=== PATIENT | male | born 1955 | race Caucasian/White ===

== ENCOUNTER 2021-07-28 08:53 | Outpatient (CLI) | payer BC ==
[2021-07-28 09:20] LABS: Estimated GFR-MDRD - POC Greater than 90
[2021-07-28] MEDS ORDERED: Iopamidol 370 76% 100 ML VIAL ONE (09:44)
== END 2021-07-28 08:54 | disposition home or self-care (01) ==
LOC: CT 08:53
PROVIDERS: ATTEND Otolaryngology Otolaryngic Allergy
DX: C02.4 Malignant neoplasm of lingual tonsil (principal); C34.90 Malignant neoplasm of unspecified part of unspecified bronchus or lung; C77.0 Secondary and unspecified malignant neoplasm of lymph nodes of head, face and neck
CPT/HCPCS: 70491; 82565

== ENCOUNTER 2021-08-19 08:00 | Outpatient (CLI) | payer BC | END 2021-08-19 08:01 | disposition home or self-care (01) | LOC: PET 08:00 | PROVIDERS: ATTEND Internal Medicine Hematology & Oncology | DX: C01 Malignant neoplasm of base of tongue (principal); C77.9 Secondary and unspecified malignant neoplasm of lymph node, unspecified | CPT/HCPCS: 78815; A9552 ==

== ENCOUNTER 2022-02-14 09:30 | Outpatient (CLI) | payer BC | END 2022-02-14 09:31 | disposition home or self-care (01) | LOC: PET 09:30 | PROVIDERS: ATTEND Radiology Radiation Oncology | DX: C01 Malignant neoplasm of base of tongue (principal); R59.0 Localized enlarged lymph nodes | CPT/HCPCS: 78815; A9552 ==

== ENCOUNTER 2022-04-05 13:25 | Outpatient (CLI) | payer BC | END 2022-04-05 13:26 | disposition home or self-care (01) | LOC: RAD 13:25 | PROVIDERS: ATTEND Radiology Radiation Oncology | DX: R13.10 Dysphagia, unspecified (principal); R63.30 Feeding difficulties, unspecified | CPT/HCPCS: 74230 ==

== ENCOUNTER 2022-08-04 13:18 | Outpatient (CLI) | payer BC ==
[2022-08-04 14:00] LABS: #Basophils 0.1 10x3/uL (0.0-0.2); #Eosinphils 0.3 10x3/uL (0.0-0.5); #Monocytes 0.6 10x3/uL (0.0-1.1); #Neutrophils 3.6 10x3/uL (1.5-8.4); %Eosinophils 4.8 % (0.0-6.0); %Lymphocytes 13.4 % (18.0-47.0); %Monocytes 11.9 % (0.0-10.0); %Neutrophils 68.7 % (40.0-75.0); Hemoglobin 13.6 g/dL (13.5-17.5); Mean Corpuscular HGB CONC 32.9 g/dL (32.0-36.0); Mean Corpuscular Hemoglobin 30.2 pg (27.0-33.0); Mean Corpuscular Volume 91.6 fl (81.2-95.1); Mean Platelet Volume 9.1 fl (7.4-10.4); Platelet Count 227 10x3/uL (150-450); RBC Distribution Width 12.4 % (11.5-14.5); Red Blood Cell (RBC) Count 4.51 10x6/uL (4.32-5.72); White Blood Cell (WBC) Count 5.2 10x3/uL (3.5-10.5)
[2022-08-04 14:22] LABS: Anion Gap 12 mmol/L (10-20); BUN (Urea Nitrogen) 17 mg/dL (8.4-25.7); Calc. Creatinine Clearance 0 mL/min (70-130); Calcium 9.6 mg/dL (7.8-10.44); Carbon Dioxide 28 mmol/L (23-31); Chloride 106 mmol/L (98-107); Estimated GFR 81; Glucose 75 mg/dL (80-115); Potassium 4.3 mmol/L (3.5-5.1); Sodium 142 mmol/L (136-145)
== END 2022-08-04 13:19 | disposition home or self-care (01) ==
LOC: LABBT 13:18
PROVIDERS: ATTEND Specialist
DX: K40.90 Unilateral inguinal hernia, without obstruction or gangrene, not specified as recurrent (principal); Z20.822 Contact with and (suspected) exposure to COVID-19
CPT/HCPCS: 80048; 85025; 93005; 93010

== ENCOUNTER 2022-08-09 08:59 | Day surgery (SDC) | payer BC ==
[2022-08-08 11:51] VITALS: BMI 18.1
[2022-08-09] MEDS ORDERED: Gabapentin 300 MG CAP ONE (11:53)
[2022-08-09] MEDS ORDERED: Acetaminophen 500 MG TAB ONE (11:53)
[2022-08-09] MEDS ORDERED: Ketorolac Tromethamine 30 MG/ML VIAL ONE (11:53)
[2022-08-09] MEDS ORDERED: Bupivacaine/Epinephrine 0.25% 30 ML VIAL ONE (15:38)
[2022-08-09] MEDS ORDERED: Tamsulosin HCl 0.4 MG CAP ONE (15:54)
[2022-08-09] MEDS ORDERED: SUGAMMADEX SODIUM 200 MG/2 ML VIAL ONE (16:01)
[2022-08-09] MEDS ORDERED: Fentanyl 250 MCG/5 ML VIAL ONE (16:01)
[2022-08-09] MEDS ORDERED: Sodium Chloride 0.9% 100 ML ONE (16:02)
[2022-08-09] MEDS ORDERED: CEFAZOLIN 2 GM VIAL ONE (16:02)
[2022-08-09] MEDS ORDERED: Lidocaine 1% PF 5 ML VIAL ONE (16:14)
[2022-08-09] MEDS ORDERED: Ondansetron PF 4 MG/2 ML Vial ONE (16:14)
[2022-08-09] MEDS ORDERED: Dexamethasone 20 MG/5 ML VIAL ONE (16:14)
[2022-08-09] MEDS ORDERED: Rocuronium Bromide 10 MG/ML (10ML VIAL) ONE (16:14)
[2022-08-09] MEDS ORDERED: PROPOFOL 200 MG/20 ML VIAL ONE (16:14)
[2022-08-09] MEDS ORDERED: Fentanyl 100 MCG/2 ML VIAL ONE ×2 (17:38→18:07)
== END 2022-08-09 20:30 | disposition home or self-care (01) ==
LOC: SDC 08:59
PROVIDERS: ATTEND Specialist
PROC: 8E0W4CZ Robotic Assisted Procedure of Trunk Region, Percutaneous Endoscopic Approach (ICD-10-PCS; principal; 2022-08-09)
PROC: 0YU54JZ Supplement Right Inguinal Region with Synthetic Substitute, Percutaneous Endoscopic Approach (ICD-10-PCS; principal; 2022-08-09)
DX: K40.90 Unilateral inguinal hernia, without obstruction or gangrene, not specified as recurrent (principal); M19.90 Unspecified osteoarthritis, unspecified site; G89.29 Other chronic pain; M54.9 Dorsalgia, unspecified; I10 Essential (primary) hypertension; Z87.891 Personal history of nicotine dependence; Z79.891 Long term (current) use of opiate analgesic; Z91.018 Allergy to other foods
CPT/HCPCS: J1100; J1885; J2405; J2704; J3010; J3490

== ENCOUNTER 2023-01-12 11:00 | Outpatient (CLI) | payer BC | END 2023-01-12 11:01 | disposition home or self-care (01) | LOC: PET 11:00 | PROVIDERS: ATTEND Internal Medicine Hematology & Oncology | DX: C01 Malignant neoplasm of base of tongue (principal); R91.8 Other nonspecific abnormal finding of lung field; R91.1 Solitary pulmonary nodule | CPT/HCPCS: 78815; A9552 ==

== ENCOUNTER 2023-01-17 08:29 | Day surgery (SDC) | payer BC ==
[2023-01-17 08:54] LABS: #Eosinphils 0.3 thou/uL (0.0-0.7); #Monocytes 0.7 thou/uL (0.11-0.59); #Neutrophils 3.9 thou/uL (1.40-6.50); %Basophils 0.7 % (0.0-1.0); %Eosinophils 5.7 % (0.0-10.0); %Lymphocytes 13.1 % (21.0-51.0); %Monocytes 12.1 % (0.0-10.0); %Neutrophils 68.2 % (42.0-75.0); Hematocrit 40.1 % (42.0-52.0); Hemoglobin 13.4 g/dL (14.0-18.0); Mean Corpuscular HGB CONC 33.4 g/dL (32.0-36.0); Mean Corpuscular Hemoglobin 31.3 pg (27.0-31.0); Mean Corpuscular Volume 93.7 fl (78.0-98.0); Mean Platelet Volume 8.8 fL (7.4-10.4); Platelet Count 168 10x3/uL (130-400); Red Blood Cell (RBC) Count 4.28 mill/uL (4.70-6.10); White Blood Cell (WBC) Count 5.8 10x3/uL (4.8-10.8)
[2023-01-17 08:59] LABS: INR-International Normal Ratio 0.9; PTT 26.1 sec (22.9-36.1); Prothrombin Time 12.9 sec (12.0-14.7)
== END 2023-01-17 14:00 | disposition home or self-care (01) ==
LOC: CT 08:29
PROVIDERS: ATTEND Radiology Radiation Oncology
PROC: 0BBF3ZX Excision of Right Lower Lung Lobe, Percutaneous Approach, Diagnostic (ICD-10-PCS; principal; 2023-01-17)
DX: C34.31 Malignant neoplasm of lower lobe, right bronchus or lung (principal); R91.1 Solitary pulmonary nodule
CPT/HCPCS: 32408; 71045; 77012; 85025; 85610; 85730; 88305; 88333

== ENCOUNTER 2023-05-04 08:45 | Outpatient (CLI) | payer BC | END 2023-05-04 08:46 | disposition home or self-care (01) | LOC: PET 08:45 | PROVIDERS: ATTEND Internal Medicine Hematology & Oncology | DX: C78.00 Secondary malignant neoplasm of unspecified lung (principal); C01 Malignant neoplasm of base of tongue; R91.8 Other nonspecific abnormal finding of lung field | CPT/HCPCS: 78815; A9552 ==

== ENCOUNTER 2023-08-03 09:30 | Outpatient (CLI) | payer BC | END 2023-08-03 09:31 | disposition home or self-care (01) | LOC: PET 09:30 | PROVIDERS: ATTEND Internal Medicine Hematology & Oncology | DX: C01 Malignant neoplasm of base of tongue (principal); C78.00 Secondary malignant neoplasm of unspecified lung; C76.0 Malignant neoplasm of head, face and neck; R91.1 Solitary pulmonary nodule | CPT/HCPCS: 78815; A9552 ==

== ENCOUNTER 2023-11-08 07:41 | Outpatient (CLI) | payer BC | END 2023-11-08 07:42 | disposition home or self-care (01) | LOC: CT 07:41 | PROVIDERS: ATTEND Internal Medicine Hematology & Oncology | DX: C01 Malignant neoplasm of base of tongue (principal); C79.89 Secondary malignant neoplasm of other specified sites; R91.8 Other nonspecific abnormal finding of lung field | CPT/HCPCS: 70491; 71260; 82565; J1642 ==

== ENCOUNTER 2024-04-02 13:38 | Outpatient (CLI) | payer BC ==
[~2024-04-02 13:38] MED LIST: Iopamidol 370 76% 100 ML VIAL ONE
== END 2024-04-02 13:39 | disposition home or self-care (01) ==
LOC: CT 13:38
PROVIDERS: ATTEND Internal Medicine Hematology & Oncology
DX: C01 Malignant neoplasm of base of tongue (principal); R91.8 Other nonspecific abnormal finding of lung field; J98.4 Other disorders of lung; Z92.3 Personal history of irradiation
CPT/HCPCS: 70491; 71260; Q9967

== ENCOUNTER 2024-04-15 11:00 | Outpatient (CLI) | payer BC | END 2024-04-15 11:01 | disposition home or self-care (01) | LOC: PET 11:00 | PROVIDERS: ATTEND Internal Medicine Hematology & Oncology | DX: C01 Malignant neoplasm of base of tongue (principal); R22.9 Localized swelling, mass and lump, unspecified; R91.1 Solitary pulmonary nodule | CPT/HCPCS: 78815; A9552 ==